=== PATIENT | female | born 1965 | race Caucasian/White ===

== ENCOUNTER 2020-02-28 18:32 | Emergency (ER) | payer SELFPAY ==
[~2020-02-28] VITALS: Ht 154.9 cm; Wt 73.5 kg
[2020-02-28 18:43] VITALS: Ht 154.9 cm; Wt 73.5 kg
[2020-02-28 20:08] VITALS: BP 125/81
== END 2020-02-28 20:09 | disposition home or self-care (01) ==
LOC: ED 18:32
DX: M54.42 Lumbago with sciatica, left side (principal); M54.41 Lumbago with sciatica, right side; Z88.2 Allergy status to sulfonamides
CPT/HCPCS: J1885